=== PATIENT | female | born 1970 | race African-American/Black ===

== ENCOUNTER 2017-09-07 21:50 | Emergency (ER) | payer OTHER ==
--- NOTE | 2017-09-07 21:52 | PDOC ---
History of Present Illness - General History Source: Patient Exam Limitations: No Limitations - History of Present Illness Initial Comments: 09/07/17 22:14 The patient is a 47 year old female with no significant PMH who presents to the emergency department with complaints of constipation and abdominal pain beginning approximately 3 days ago. Patient is afebrile and states she has a good appetite but did not drink enough fluids today. The patient notes she took citroma with no relief of her symptoms. Her LMP was a week and a half ago. The patient denies headache and dizziness, fever, chills, nausea, and vomit. Denies dysuria, frequency, urgency and hematuria. Allergies: NKA Past surgical history: None reported Social history: Current smoker (4 cigarettes per day). Alcohol use. No reported drug use. PCP: Dr. Otero <Emily Lynn - Last Filed: 09/07/17 22:18> <Laura Hernandez - Last Filed: 09/08/17 01:45> - General Stated Complaint: ABD PAIN Time Seen by Provider: 09/07/17 21:51 Past History <Emily Lynn - Last Filed: 09/07/17 22:18> - Suicide/Smoking/Psychosocial Hx Smoking Status: No Smoking History: Current every day smoker Number of Cigarettes Smoked Daily: 4 Hx Alcohol Use: Yes <Laura Hernandez - Last Filed: 09/08/17 01:45> - Past Medical History Allergies/Adverse Reactions: Allergies Allergy/AdvReac Type Severity Reaction Status Date / Time No Known Allergies Allergy Verified 09/07/17 21:57 Home Medications: Ambulatory Orders NK [No Known Home Medication] 09/07/17 Review of Systems - Review of Systems Able to Perform ROS?: Yes Comments:: 09/07/17 22:15 CONSTITUTIONAL: Absent: fever, no chills, no fatigue EYES: Absent: visual changes ENT: Absent: ear pain, no sore throat CARDIOVASCULAR: Absent: chest pain, no palpitations RESPIRATORY: Absent: cough, no SOB GI: Absent: no nausea, no vomiting, no constipation, no diarrhea Present: abdominal pain GENITOURINARY: Absent: dysuria, no frequency, no hematuria Present: constipation MUSKULOSKELETAL: Absent: back pain, no arthralgia, no myalgia SKIN: Absent: rash NEURO: Absent: headache <Emily Lynn Last Filed: 09/07/17 22:18> *Physical Exam - Vital Signs Last Vital Signs Temp Pulse Resp BP Pulse Ox 98.6 F 70 20 127/64 99 09/07/17 21:57 09/07/17 21:57 09/07/17 21:57 09/07/17 21:57 09/07/17 21:57 - Physical Exam Comments: 09/07/17 22:16 GENERAL: Well-appearing, well-nourished. No apparent distress. HEENT: Normocephalic, atraumatic. PERRL, EOM intact. CARDIOVASCULAR: Normal S1, S2. Regular rate and rhythm. PULMONARY: Clear to auscultation bilaterally. ABDOMEN: Soft, non-distended. (+) Diffuse abdominal tenderness EXTREMITIES: Normal ROM in all four extremities. No gross deformities. SKIN: Warm, dry. No rash NEUROLOGICAL: No focal neurological deficits. <Emily Lynn - Last Filed: 09/07/17 22:18> ED Treatment Course - LABORATORY CBC & Chemistry Diagram: 09/07/17 22:20 09/07/17 22:20 <Laura Hernandez - Last Filed: 09/08/17 01:45> Medical Decision Making - Medical Decision Making 09/07/17 22:57 Pt has multiple air fluid levels on FUA exam. She will get NGT placed; preop labs, and we will do a ct abd pelcis with IV contrast, so long as her BUN/Cr are normal 09/08/17 01:44 Patient Name: JESSA ARANGO THIS IS A PRELIMINARY REPORT FROM [facility] DATE OF SERVICE: 2017-09-08 00:31:19 IMAGES: [id number] EXAM: CT ABDOMEN AND PELVIS with contrast HISTORY: Constipation rule out obstruction COMPARISON: None. FINDINGS: There is no bowel obstruction and. Negative for colitis but the colon and loops of small bowel are fluid-filled suggesting enteritis. Negative for appendicitis. Normal kidneys and urinary tracts. Normal liver. No obvious gallbladder abnormalities. Normal spleen. Normal pancreas. <Laura Hernandez - Last Filed: 09/08/17 01:45> *DC/Admit/Observation/Transfer - Attestations Scribe Attestion: 09/07/17 22:17 Documentation prepared by Emily Lynn, acting as medical billing coordinator for Laura Hernandez MD. <Emily Lynn - Last Filed: 09/07/17 22:18> - Discharge Dispostion Admit: No <Laura Hernandez - Last Filed: 09/08/17 01:45> Diagnosis at time of Disposition: Constipation, Abdominal pain - Discharge Dispostion Disposition: HOME Condition at time of disposition: Stable - Patient Instructions Printed Discharge Instructions: DI for Constipation
[2017-09-07] MEDS ORDERED: LACTULOSE 20 GM/30 ML UDC (FOR ORAL USE ONLY) PO ONE (21:59)
[2017-09-07] MEDS ORDERED: POLYETHYLENE GLYCOL 3350 119 GM BTL PO ONE (22:00)
[2017-09-07] MEDS ORDERED: SODIUM CHLORIDE 0.9% 500 ML INFUS.BAG IV ONE (22:06)
[2017-09-07] MEDS ORDERED: ACETAMINOPHEN 1000 MG/100 ML VIAL (NON FORMULARY) IVPB ONE (22:06)
[2017-09-07] MEDS ORDERED: LACTULOSE 20 GM/30 ML UDC (FOR ORAL USE ONLY) ONE (22:14)
[2017-09-07] MEDS ORDERED: ACETAMINOPHEN INJECTION 100 ML IVPB ONE (22:15)
[2017-09-07 22:32] LABS: BASOPHIL 0.8 % (0-2.0); EOSINOPHIL 0.4 % (0-4.5); MCH 29.9 pg (25.7-33.7); MEAN CELL VOLUME 90.5 fl (80-96); MEAN PLT VOLUME 9.5 fl (7.5-11.1); NEUTROPHILS 72.9 % (42.8-82.8); PLATELET COUNT 195 K/MM3 (134-434); RDW 13.1 % (11.6-15.6); WHITE BLOOD COUNT 11.9 K/mm3 (4.0-10.0)
[2017-09-07 22:56] VITALS: PULSE 70; BMI 30.4
[2017-09-07 23:06] LABS: ALBUMIN 3.8 g/dl (3.4-5.0); ANION GAP 9 (8-16); BILIRUBIN,TOTAL 0.4 mg/dL (0.2-1.0); CALCIUM 8.7 mg/dL (8.5-10.1); CO2 23 mmol/L (21-32); CREATININE 0.9 mg/dL (0.55-1.02); GLUCOSE,RANDOM 97 mg/dL (74-106); SGOT/AST 15 U/L (15-37); SGPT/ALT 24 U/L (12-78); TOT PROT 7.7 g/dl (6.4-8.2)
[2017-09-07 23:07] LABS: ALK PHOS 57 U/L (45-117)
[2017-09-07] MEDS ORDERED: morphine CARPU-JECT 2 MG/1 ML DISP.SYRIN IVPUSH ONE (23:17)
[2017-09-07] MEDS ORDERED: morphine SULFATE 4 MG/ML VIAL ONE (23:24)
[2017-09-07 23:37] LABS: INR 1.06 (0.82-1.09)
[2017-09-08 01:58] VITALS: BP 126/79; TEMP 98.1
== END 2017-09-08 01:58 | disposition home or self-care (01) ==
LOC: JER 21:50
PROC: 3E033NZ Introduction of Analgesics, Hypnotics, Sedatives into Peripheral Vein, Percutaneous Approach (ICD-10-PCS; principal; 2017-09-07)
PROC: 3E033GC Introduction of Other Therapeutic Substance into Peripheral Vein, Percutaneous Approach (ICD-10-PCS; 2017-09-07)
PROC: 3E0337Z Introduction of Electrolytic and Water Balance Substance into Peripheral Vein, Percutaneous Approach (ICD-10-PCS; 2017-09-07)
DX: K59.00 Constipation, unspecified (principal); R10.9 Unspecified abdominal pain
CPT/HCPCS: 36415; 74020-TC; 74177-TC; 80053; 83690; 85025; 85610; 85730; 86850; 86900; 86901; 99281-25

== ENCOUNTER 2023-05-30 14:35 | Emergency (ER) | payer OTHER ==
[2023-05-30 14:47] VITALS: BMI 27.4
[2023-05-30] MEDS ORDERED: LIDOCAINE 5% TOPICAL PATCH TP ONE (15:16)
[2023-05-30] MEDS ORDERED: KETOROLAC TROMETHAMINE 30 MG/1 ML VIAL IM ONE ×2 (15:16→20:28)
[2023-05-30] MEDS ORDERED: LIDOCAINE 5% TOPICAL PATCH ONE (15:22)
[2023-05-30] MEDS ORDERED: KETOROLAC TROMETHAMINE 30 MG/1 ML VIAL ONE ×2 (15:22→20:36)
[2023-05-30 21:49] VITALS: BP 110/76; PULSE 82; RESP 19; TEMP 97.9
[2023-05-30] MEDS ORDERED: LIDOCAINE PATCH REMOVAL MC SCH (22:00)
== END 2023-05-30 21:51 | disposition home or self-care (01) ==
LOC: JER 14:35 → JERFT 14:35
PROC: 3E0233Z Introduction of Anti-inflammatory into Muscle, Percutaneous Approach (ICD-10-PCS; principal; 2023-05-30)
PROC: 3E0233Z Introduction of Anti-inflammatory into Muscle, Percutaneous Approach (ICD-10-PCS; 2023-05-30)
DX: R51.9 Headache, unspecified (principal); M54.2 Cervicalgia
CPT/HCPCS: 72125-TC; 99284-25